=== PATIENT | male | born 1995 | race Two or more races ===

== ENCOUNTER 2022-12-20 15:13 | Emergency (ER) | payer SELFPAY ==
[~2022-12-20] VITALS: Ht 175.3 cm; Wt 175.0 kg
[2022-12-20] MEDS ORDERED: ASPirin 81 mg TAB PO ONE (15:30)
[2022-12-20] MEDS ORDERED: cloNIDine HCL 0.1 MG TAB PO ONE (15:30)
[2022-12-20 15:59] LABS: Basophils # (auto) 0.1 10 ^3/uL (0-0.2); Basophils % (auto) 0.7 % (0.0-2.0); Eosinophils # (auto) 0.2 10 ^3/uL (0-0.8); Eosinophils % (auto) 1.7 % (0.0-7.0); Hematocrit 43.8 % (41.0-53.0); Lymphocytes # (auto) 3.3 10 ^3/uL (0.4-5.4); Lymphocytes % (auto) 26.5 % (10.0-50.0); Mean Corpuscular Hemoglobin 29.5 pg (28.0-32.0); Mean Corpuscular Hgb Conc. 34.2 g/dL (32.0-36.0); Mean Corpuscular Volume 86.4 fL (80.0-100.0); Monocytes % (auto) 7.7 % (0.0-12.0); Neutrophils # (auto) 7.8 10 ^3/uL (1.6-8.6); Neutrophils % (auto) 63.4 % (37.0-80.0); Nucleated Red Blood Cells % 0.1 %; Red Blood Cells 5.07 10^6/uL (4.5-5.90); Red Cell Distribution Width 13.2 % (11.8-14.3); White Blood Cell 12.3 10^3/uL (4.4-10.8)
[2022-12-20 16:27] LABS: Albumin 3.6 g/dL (3.4-5.0); BUN/Creatinine Ratio 16.2 (10.0-20.0); Calcium 8.7 mg/dL (8.5-10.1); Potassium 3.6 mmol/L (3.5-5.1)
[2022-12-20 16:37] LABS: Bilirubin, Total 0.4 mg/dL (0.2-1.0); Total Protein 7.1 g/dL (6.4-8.2)
[2022-12-20] MEDS ORDERED: LOSA100T25 PO (17:32)
[2022-12-20 17:54] VITALS: BP 143/86; PULSE 96; RESP 16; TEMP 99.4; O2SAT 95
== END 2022-12-20 17:56 | disposition home or self-care (01) ==
LOC: ER 15:13
DX: I16.0 Hypertensive urgency (principal); R00.2 Palpitations; Z87.891 Personal history of nicotine dependence
CPT/HCPCS: 36415; 70450; 71046; 80053; 84484; 85025; 93005